=== PATIENT | male | born 1960 | race Caucasian/White ===

== ENCOUNTER 2019-08-08 12:58 | Emergency (ER) | payer MEDICARE ==
[~2019-08-08] VITALS: Ht 185.4 cm; Wt 75.0 kg
[2019-08-08 13:04] VITALS: Ht 185.4 cm; Wt 75.0 kg
[2019-08-08] MEDS ORDERED: ULTRAM50 MG PO (13:05)
[2019-08-08] MEDS ORDERED: PRAVACHOL20 MG PO (13:06)
[2019-08-08] MEDS ORDERED: ATIVAN1 MG PO (13:06)
[2019-08-08 13:23] LABS: BASOPHILS 0.5 % (0-2); EOSINOPHILS 2.6 % (0-7); HEMATOCRIT 53.5 % (42.0-54.0); HEMOGLOBIN 17.7 g/dL (13.5-17.5); IMMATURE GRANULOCYTES 0.1 % (0-5); LYMPHOCYTES 14.9 % (15-50); MCH 30.9 pg (26.0-34.0); MCHC 33.1 g/dL (31.0-37.0); MCV 93.5 fL (80.0-100.0); MEAN PLATELET VOLUME 9.1 fL (7.4-10.4); MONOCYTES 11.3 % (2-11); NEUTROPHILS 70.6 % (40-80); RBC 5.72 10x6/uL (4.20-6.10); RDW 12.6 % (11.5-14.5); WBC 7.6 10x3/uL (4.8-10.8)
[2019-08-08 13:31] LABS: PLATELET COUNT 294 10x3/uL (130-400)
[2019-08-08 13:45] LABS: CALC OSMOLALITY 271 mosm/kg (275-300); CALCIUM 9.4 mg/dL (8.5-10.1); CARBON DIOXIDE 31.6 mmol/L (21.0-32.0); CHLORIDE - SERUM 100 mmol/L (98-107); GLUCOSE 105 mg/dL (74-106); SODIUM 136 mmol/L (136-145); UREA NITROGEN 13 mg/dL (7-18); eGFR NON AFRICAN AMERICAN 82 mL/min (90-120)
[2019-08-08 13:51] LABS: ALBUMIN 4.4 g/dL (3.4-5.0); ALKALINE PHOSPHATASE 119 U/L (46-116); ALT (SGPT) 22 U/L (10-68); BILIRUBIN - TOTAL 0.75 mg/dL (0.2-1.3); PROTEIN - SERUM 7.3 g/dL (6.4-8.2)
[2019-08-08 13:52] LABS: APPEARANCE CLEAR (CLEAR); BILIRUBIN NEGATIVE (NEGATIVE); COLOR STRAW (YELLOW); GLUCOSE NEGATIVE (NEGATIVE); KETONE NEGATIVE (NEGATIVE); NITRITE NEGATIVE (NEGATIVE); PROTEIN TRACE mg/dL (NEGATIVE); SPECIFIC GRAVITY 1.015 (1.005-1.020); UROBILINOGEN NORMAL (NORMAL)
[2019-08-08 13:59] LABS: WHITE CELLS - URINE 0-5 /hpf (NEGATIVE)
[2019-08-08 14:00] LABS: BACTERIA FEW /hpf (NEGATIVE); CALCIUM OXALATE CRYSTALS 0-5 /hpf (NONE SEEN); EPITHELIAL CELLS NSEEN /hpf (0-5)
[2019-08-08] MEDS ORDERED: ACETAMINOPHEN500 M1 PO (15:09)
[2019-08-08] MEDS ORDERED: IBUPROFEN800 MG PO (15:09)
[2019-08-08] MEDS ORDERED: CYCLOBENZAPRINE10 MG PO (15:09)
[2019-08-08 16:20] VITALS: BP 140/82
== END 2019-08-08 16:20 | disposition home or self-care (01) ==
LOC: D.ER 12:58
PROVIDERS: Family Medicine
DX: R31.9 Hematuria, unspecified (principal); M54.5 Low back pain; R10.9 Unspecified abdominal pain; Z72.0 Tobacco use; E78.5 Hyperlipidemia, unspecified

== ENCOUNTER 2020-01-25 13:32 | Emergency (ER) | payer MEDICARE ==
[~2020-01-25] VITALS: Ht 185.4 cm; Wt 77.1 kg
[~2020-01-25 13:32] MED LIST: ACETAMINOPHEN500 M1 PO; ATIVAN1 MG PO; CYCLOBENZAPRINE10 MG PO; IBUPROFEN800 MG PO; PRAVACHOL20 MG PO; ULTRAM50 MG PO
[2020-01-25 13:36] VITALS: Ht 185.4 cm; Wt 77.1 kg
[2020-01-25 15:00] LABS: BACTERIA FEW /hpf (NEGATIVE); BILIRUBIN NEGATIVE (NEGATIVE); EPITHELIAL CELLS 0-5 /hpf (0-5); GLUCOSE NEGATIVE (NEGATIVE); KETONE NEGATIVE (NEGATIVE); NITRITE NEGATIVE (NEGATIVE); RED CELLS - URINE >50 /hpf (0-5); UROBILINOGEN NORMAL (NORMAL); WHITE CELLS - URINE 0-5 /hpf (NEGATIVE)
[2020-01-25 16:01] LABS: BASOPHILS 0.2 % (0-2); HEMATOCRIT 50.2 % (42.0-54.0); IMMATURE GRANULOCYTES 0.2 % (0-5); LYMPHOCYTES 11.5 % (15-50); MCH 30.7 pg (26.0-34.0); MCHC 33.9 g/dL (31.0-37.0); MCV 90.8 fL (80.0-100.0); MONOCYTES 11.4 % (2-11); NEUTROPHILS 75.7 % (40-80); PLATELET COUNT 237 10x3/uL (130-400); RBC 5.53 10x6/uL (4.20-6.10); RDW 13.6 % (11.5-14.5); WBC 12.6 10x3/uL (4.8-10.8)
[2020-01-25 16:08] LABS: INR 1.11 (0.85-1.17); PROTIME 14.3 SECONDS (11.6-15.0)
[2020-01-25 16:30] VITALS: BP 161/86
[2020-01-25 16:54] LABS: CALC OSMOLALITY 278 mosm/kg (275-300); CALCIUM 8.6 mg/dL (8.5-10.1); CARBON DIOXIDE 28.7 mmol/L (21.0-32.0); CHLORIDE - SERUM 105 mmol/L (98-107); GLUCOSE 87 mg/dL (74-106); SODIUM 140 mmol/L (136-145); UREA NITROGEN 15 mg/dL (7-18); eGFR NON AFRICAN AMERICAN 82 mL/min (90-120)
[2020-01-25 17:00] LABS: ALBUMIN 4.1 g/dL (3.4-5.0); ALKALINE PHOSPHATASE 100 U/L (30-120); ALT (SGPT) 18 U/L (10-68); BILIRUBIN - TOTAL 1.35 mg/dL (0.2-1.3); PROTEIN - SERUM 6.6 g/dL (6.4-8.2)
== END 2020-01-25 17:52 | disposition other institution (70) ==
LOC: D.ER 13:32
PROVIDERS: Family Medicine
DX: N13.2 Hydronephrosis with renal and ureteral calculous obstruction (principal); R10.9 Unspecified abdominal pain; R11.0 Nausea